=== PATIENT | male | born 1970 | race African-American/Black ===

== ENCOUNTER 2018-10-31 15:09 | Emergency (ER) | payer MEDICAID ==
[~2018-10-31] VITALS: Ht 177.8 cm; Wt 81.6 kg
--- NOTE | 2018-10-31 15:24 | NUR ---
ED Nurse Note: PT WALKED IN TO ER TODAY FROM HOME. AOX4. PT C/O REDNESS TO LEFT EYE X YESTERDAY BUT STATES REDNESS HAS BEEN INTERMITTENT X 1 MONTH. PT PRESENTS WITH REDNESS TO ENTIRE CONJUNCTIVA. PT DENIES PAIN, DRAINAGE, BLEEDING, CHANGES IN VISION, TRAUMA, OR INJURY.
--- NOTE | 2018-10-31 15:24 | NUR ---
Note kyle in EDM - 10/31/18 at 1528 by HOLDEN ED Nurse Note: PT WALKED IN TO ER TODAY FROM HOME. AOX4. PT C/O REDNESS TO LEFT EYE X YESTERDAY BUT STATES REDNESS HAS BEEN INTERMITTENT X 1 MONTH. PT PRESENTS WITH REDNESS TO ENTIRE CONJUNCTIVA. PT DENIES DRAINAGE, BLEEDING, CHANGES IN VISION, TRAUMA, OR INJURY.
[2018-10-31 15:26] VITALS: BP 124/76
--- NOTE | 2018-10-31 15:43 | Emergency Room Report ---
History of Present Illness General Chief Complaint: Eye Problems Source: Patient Present Illness HPI 48 YO Male presents to the ED c/o erythema of the left eye, acute onset upon awakening. Denies pain, trauma, changes in vision, recent coughing/sneezing or strenuous activities. Pt. reports similar symptoms 1 month ago as well. Denies taking blood thinning medications or hx of HTN. Denies CP, Palpitations, LOC, AMS, dizziness, Changes in Vision, Sensation, paresthesias, or a sudden severe headache. Pt. reports some itching of the upper left lid. denies scratching fb sensation. Denies eye discharge or increased lacrimation. Patient History Past Medical History: see triage record Past Surgical History: none Pertinent Family History: none Reviewed Nursing Documentation: PMH: Agreed; PSxH: Agreed Nursing Documentation-PMH Past Medical History: No History, Except For Hx Gastrointestinal Problems: Yes - IBS Review of Systems All Other Systems: negative except mentioned in HPI Physical Exam Vital Signs Date Time Temp Pulse Resp B/P (MAP) Pulse Ox O2 Delivery O2 Flow Rate FiO2 10/31/18 15:16 98.2 79 18 120/73 (89) 96 Room Air Sp02 EP Interpretation: reviewed, normal General Appearance: no apparent distress, alert, GCS 15, non-toxic Head: normocephalic, atraumatic Eyes: left eye other - subconjunctival hemorrhage. no photophobia, EOMI, no signs of trauma or infeciton. mild swelling noted of the upper lid of the left eye at the last line. ; bilateral eye normal inspection, bilateral eye PERRL, bilateral eye visual acuity ENT: hearing grossly normal, normal voice Neck: full range of motion, no meningismus Respiratory: lungs clear, normal breath sounds, speaking full sentences Cardiovascular #1: regular rate, rhythm Musculoskeletal: back normal, gait/station normal, normal range of motion, non- tender Neurologic: alert, oriented x3, responsive, motor strength/tone normal, sensory intact, normal gait, speech normal, grossly normal Psychiatric: judgement/insight normal Skin: no rash, other - no signs of trauma or bruises Medical Decision Making PA Attestation Dr. Abraham is my supervising Physician whom patient management has been discussed with. Diagnostic Impression: Primary Impression: Subconjunctival hemorrhage of left eye ER Course 48 YO Male presents to the ED c/o erythema of the left eye, acute onset upon awakening. Denies pain, trauma, changes in vision, recent coughing/sneezing or strenuous activities. Pt. reports similar symptoms 1 month ago as well. Denies taking blood thinning medications or hx of HTN. Denies CP, Palpitations, LOC, AMS, dizziness, Changes in Vision, Sensation, paresthesias, or a sudden severe headache. Pt. reports some itching of the upper left lid. denies scratching fb sensation. Denies eye discharge or increased lacrimation. - denies d/c, increased lacrimation, swelling or trauma of the eye. Ddx considered but are not limited to: conjunctivitis, subconjunctival hemorrhage, iritis, acute angle glaucoma. Vital signs: are WNL, pt. is afebrile H&PE are most consistent with: Subconjunctival hemorrhage ORDERS: none required at this time, the dx is clinical ED INTERVENTIONS: none at this time. -gave reassurance. DISCHARGE: At this time pt. is stable for d/c to home. Will provide printed patient care instructions, and any necessary prescriptions. Care plan and follow up instructions have been discussed with the patient prior to discharge. Last Vital Signs Date Time Temp Pulse Resp B/P (MAP) Pulse Ox O2 Delivery O2 Flow Rate FiO2 10/31/18 15:26 98.4 76 17 124/76 98 Room Air Disposition: HOME, SELF-CARE Condition: Stable Scripts Acetaminophen* (TYLENOL EXTRA STRENGTH*) 500 Mg Tablet 500 MG ORAL Q6H, #20 TAB 0 Refills Prov: Linda Aly 10/31/18 Olopatadine Hcl (PATADAY) 2.5 Ml Drops 1 DROP OP DAILY, #2.5 ML Prov: Linda Aly 10/31/18 Referrals: [facility], [facility] Patient Instructions: Subconjunctival Hemorrhage Additional Instructions: Take medications as directed. Follow up with a Primary Care Provider in 3-5 days, even if your symptoms have resolved. --Please review list of primary care clinics, if you do not already have a primary care provider Return sooner to ED if new symptoms occur, or current symptoms become worse. - Please note that this Emergency Department Report was dictated using [employer] fixer technology software, occasionally this can lead to erroneous entry secondary to interpretation by the dictation equipment. Linda Aly Oct 31, 2018 15:43
[2018-10-31] MEDS ORDERED: PATADAY2.5 ML OP (15:44)
[2018-10-31] MEDS ORDERED: TYLENOL EXTRA500 MG ORAL (15:44)
[2018-10-31 15:50] VITALS: BP 122/80
--- NOTE | 2018-10-31 15:50 | NUR ---
ED Nurse Note: PT SITTING PEACEFULLY IN BED IN NAD. AOX4. PRESCRIPTIONS AND DISCHARGE PAPERWORK EXPLAINED TO PT. PT VERBALIZES UNDERSTANDING AND ALL QUESTIONS ANSWERED. PRESCRIPTIONS AND DISCHARGE PAPERWORK GIVEN TO PT AND ID WRISTBAND REMOVED. PT WALKED OUT OF ER WITH STEADY GAIT AND ALL BELONGINGS.
== END 2018-10-31 15:51 | disposition home or self-care (01) ==
LOC: EMR 15:34
DX: H11.32 Conjunctival hemorrhage, left eye (principal); K58.9 Irritable bowel syndrome, unspecified
CPT/HCPCS: 99282

== ENCOUNTER → 2020-02-16 | Emergency (ER) | payer MEDICAID, OTHER ==
[~2020-02-16] VITALS: Ht 175.3 cm; Wt 96.2 kg
[~2020-02-16] MED LIST: ACETAMINOPHEN-1 EAC1 ORAL; Acetaminophen 500mg (ES) tab ORAL ONE; Ketorolac 60mg Inj IM ONE; NAPROXEN500 M2 ORAL; PATADAY2.5 ML OP; TYLENOL EXTRA500 MG ORAL
[2020-02-16 07:17] VITALS: BP 134/84
--- NOTE | 2020-02-16 07:17 | NUR ---
ED Nurse Note: Patient from home and walked in due to left foot swelling and pain since yesterday. Denies any recent trauma. vss, nad noted, a/ox4, ambulatory.
--- NOTE | 2020-02-16 07:31 | Emergency Room Report ---
History of Present Illness General Chief Complaint: Pain Source: Patient Present Illness HPI 49-year-old -Chinese male with past medical history of hypertension presents after dropping a metal wrench on his foot yesterday. Patient was ambulatory after the event, however has pain with weightbearing at this time. Denies numbness, paresthesia, recurrent trauma, fall, head trauma, loss of consciousness, vision changes, weakness, neck pain, back pain, chest pain or any other symptoms. The patient's symptoms were gradual onset, severity was moderate, duration since 1 day. Quality: Aching Patient has not tried any medication to alleviate his symptoms. Past medical history: Hypertension Past surgical history: Denies Smoking: Denies Alcohol use: Denies Drug use: Denies Review of systems: CONST: No fevers or chills, No night sweats PULMONARY: No productive cough, No shortness of breath CARDIAC: No chest pain, No palpitations GI: No vomiting, No diarrhea , No melena_or_BRBPR : No dysuria, No hematuria, No discharge NEURO: No new_focal_weakness_or_numbness, No confusion, No vision changes 14 point Review of Systems is otherwise negative except per HPI Physical Exam: GENERAL: Awake_alert_ nontoxic, no acute distress Spo2 98% on RA -normal EYES: Extraocular muscles are intact. Conjunctivae clear. Lids without swelling ENT: External nose and ear normal_in_appearance. Oropharynx clear. Head_atraumatic, Moist_oral_mucosa NECK: No JVD. No meningismus. No thyromegaly. Supple. Trachea midline RESP: Normal respiratory effort. Symmetric rise. No stridor. Clear_to_auscultation_No_rales_No_wheezes CARDIAC: Regular rate and regular rhytm. No_significant pedal edema. ABDOMEN: Soft. Nondistended. Nontender_No_rebound_or_guarding. MSK: Normal muscle tone, without rigidity. Extremities without asymmetric deformity or swelling. Left ankle / foot exam: Tenderness to palpation at the base of left toe #2 through 4. Trace swelling. Ecchymosis. No gross deformity Compartments are soft and compressible. Able to wiggle toes. No significant pain with passive range of motion Lateral malleolus: no tenderness / swelling / ecchymoses Medial malleolus: no tenderness / swelling / ecchymoses Dorsalis pedis pulse: 2+ Capillary refill: <3 seconds in all toes All toes: full range of motion without any tenderness / swelling / deformity / evidence of infection Base of the fifth metatarsal: no tenderness / swelling / ecchymoses Navicular: no tenderness / swelling / ecchymoses Calcaneus: no tenderness / swelling / ecchymoses Arch of the foot: no tenderness / swelling / ecchymoses Midfoot: no tenderness / swelling / ecchymoses Strength of dorsal / plantar flexion: normal 5/5, mild pain with range of motion SKIN: Warm and dry. No visible cyanosis or pallor NEUROLOGIC: Alert, oriented x3. Motor_and_sensation_grossly_intact. No truncal ataxia. Gait_normal Psych: Normal mood and affect, normal judgment and insight - COORDINATION OF CARE Case was discussed with: Patient Any imaging that were ordered were interpreted as part of the medical decision m aking: Medical Decision Making/Plan: Differential diagnosis includes musculoskeletal pain, fracture, dislocation, compartment syndrome, arterial occlusion, nerve damage, among others. Patient is afebrile, neurologically intact. He has tenderness to palpation at the dorsal aspect of toes #2 through 4. No gross deformity. No midfoot instability or TTP at tarsometatarsal joint. Distally the patient has capillary refill <2 seconds and strong pulses. There is no pallor or pain out of proportion to exam. There is no significant swelling, deformity, or report of significant dislocation that subsequently reduced. No evidence of arterial occlusion or injury. The associated joints have full range of motion without any significant pain or restriction in mobility. No evidence at this time of major ligamentous disruption. Xray of the left foot is WNL. Patient was placed in short leg splint. He was advised to follow-up with orthopedics in 7 days for repeat x-ray and continued management. Pertinent results reviewed with the patient. I educated the patient on the current treatment plan including the risks, benefits, and alternatives. I also discussed the extent and limitations of the current evaluation. The patient expressed understanding and agreement with plan. I recommended PMD follow-up within 3 days. Patient was informed that occult fractures or foreign bodies are not always apparent on their first visit and understand to follow up with their regular doctor for a reevaluation within the next 2-3 days, to ensure their symptoms completely resolve. 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 Reassessed following splint application. Neurovascular intact. Compartments remain soft and compressible. Pt tolerated well without complications. Splint care instructions were discussed. Crutches given. Pt to follow up with orthopedics within 1 week to prevent future arthritis and medical terminologist disability. Medical Decision Making Diagnostic Impression: Primary Impression: Foot pain, left Additional Impression: Toe pain, left Other X-Ray Diagnostic Results Other X-Ray Diagnostic Results : PA Scribe Text Left foot X-ray: Views: 2 view(s) No fracture. Normal alignment. Soft tissues normal. Joint spaces normal. Indication: Pain Impression: no acute disease The X-ray(s) were independently viewed and interpreted contemporaneously - Electronically signed by Afsaneh alas DO Reevaluation Time: 08:30 Last Vital Signs Date Time Temp Pulse Resp B/P (MAP) Pulse Ox O2 Delivery O2 Flow Rate FiO2 02/16/20 07:17 98.4 16 134/84 96 Room Air 02/16/20 07:11 85 Status: improved Disposition: HOME, SELF-CARE Admit Decision Time: 07:29 Condition: Stable Scripts Naproxen* (NAPROXEN*) 500 Mg Tablet 500 MG ORAL TWICE A DAY for 15 Days, #30 TAB Prov: Afsaneh Hughes.OCaro 02/16/20 Acetaminophen With Codeine (T#3) (TYLENOL #3 TAB*) Y Tab 1 TAB ORAL Q8H PRN for For Pain, #20 TAB Prov: Afsaneh Hughes.O. 02/16/20 Patient Instructions: Cast or Splint Care, [id number], Foot Contusion Additional Instructions: Instructions for patient/control system manager: Follow up with your physician in 1-2 days. Weight-bear as tolerated to the left foot. You need to follow-up with orthopedics within 5 days to prevent future arthritis or disability. You may need repeat x-rays if you are still having pain Since there is always the possibility of X-ray variance, you should get a copy of the final report of your imaging studies from medical records in 2-3 days in case of discrepancy, or you can have your regular doctor obtain these from the hospital. Hairline fractures or occult fractures can also be missed on the first visit so if you are having persistent pain and persistent decreased function after 1 week you should return for repeat evaluation and potentially repeat imaging. Follow-up with your doctor sooner if your condition requires a more timely clinical reevaluation. Return to the emergency department immediately if you feel that your condition is worsening or if you have any new or concerning symptoms. Review your discharge instructions and take any prescriptions given as instructed. [facility] PROVIDES FREE OR LOW-COST HEALTH SERVICES TO PEOPLE WHO CAN SHOW PROOF THAT THEY LIVE IN [facility]. TO FIND MORE CLINICS PARTNERED WITH [facility] TO PROVIDE SERVICE, PLEASE CALL . Afsaneh Hughes D.O. Feb 16, 2020 07:31
--- NOTE | 2020-02-16 08:00 | NUR ---
ED Nurse Note: xray at bedside.
[2020-02-16 08:26] VITALS: BP 134/84
--- NOTE | 2020-02-16 08:27 | NUR ---
ED Nurse Note: Patient cleared by health care Provider for discharge. DC instructions/prescription was given and explained to pt and verbalized understanding of teachings. All medical devices such as ID band removed. Pt is AAO x4, ambulatory and left with all personal belongings.
--- NOTE | 2020-02-16 12:17 | Diagnostic Imaging Report ---
Indication: Left foot pain Technique: 3 views left foot Comparison: none Findings: No acute fracture. No dislocation. Joint spaces are preserved. There are vascular calcifications. Impression: No acute process
== END | disposition home or self-care (01) ==
LOC: EMR 07:33
DX: M79.672 Pain in left foot (principal); M79.675 Pain in left toe(s); W22.8XXA Striking against or struck by other objects, initial encounter; Y93.9 Activity, unspecified; Y92.9 Unspecified place or not applicable
CPT/HCPCS: 29515; 73630; 96372; Z7502; 99283

== ENCOUNTER 2020-03-09 05:31 | Emergency (ER) | payer OTHER ==
[~2020-03-09] VITALS: Ht 175.3 cm; Wt 90.7 kg
[~2020-03-09 05:31] MED LIST changes: -Acetaminophen 500mg (ES) tab ORAL ONE; -Ketorolac 60mg Inj IM ONE
--- NOTE | 2020-03-09 05:45 | Emergency Room Report ---
History of Present Illness General Chief Complaint: Pain Source: Patient Present Illness HPI This is a 49-year-old male with no past medical history. He presents with chief complaint of toe pain. He dropped a heavy object on his toe around [place]. Since then is been hurting. It was very swollen but better now. Worse when he walk on it. Better with rest. No drainage. No fever chills but no redness. Pain is 8 out of 10. 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 COVID-19 Screening: Negative COVID-19 COVID-19 Testing Source: [facility] Patient History Past Medical History: see triage record, old chart reviewed Past Surgical History: none Pertinent Family History: none Social History: Denies: smoking Immunizations: other Reviewed Nursing Documentation: PMH: Agreed; PSxH: Agreed Nursing Documentation-PMH Past Medical History: No Stated History Hx Gastrointestinal Problems: Yes Review of Systems Eye: Denies: eye pain, blurred vision ENT: Denies: ear pain, nose congestion, throat swelling Respiratory: Denies: cough, shortness of breath Cardiovascular: Denies: chest pain, palpitations Gastrointestinal: Denies: abdominal pain, diarrhea, nausea, vomiting Musculoskeletal: Reports: joint pain; Denies: back pain Skin: Denies: rash Neurological: Denies: headache, numbness Endocrine: Denies: increased thirst, increased urine Hematologic/Lymphatic: Denies: easy bruising All Other Systems: negative except mentioned in HPI Physical Exam Vital Signs Date Time Temp Pulse Resp B/P (MAP) Pulse Ox O2 Delivery O2 Flow Rate FiO2 03/09/20 05:35 98.1 87 18 123/73 (90) 97 Room Air Vitals normal Sp02 EP Interpretation: reviewed, normal General Appearance: well appearing, no apparent distress, alert Head: normocephalic, atraumatic Eyes: bilateral eye PERRL, bilateral eye EOMI ENT: hearing grossly normal, normal pharynx Neck: full range of motion, supple, no meningismus Respiratory: chest non-tender, lungs clear, normal breath sounds Cardiovascular #1: regular rate, rhythm, no murmur Gastrointestinal: normal bowel sounds, non tender, no mass, no organomegaly, no bruit, non-distended Musculoskeletal: back normal, normal range of motion, gait/station normal, other - Left fourth toe: There is tenderness at the base of the phalanx and proximal metatarsal bone. There is generalized edema. No redness. No ecchymosis. Psychiatric: mood/affect normal Medical Decision Making Diagnostic Impression: Primary Impression: Toe fracture, left Qualified Codes: S92.912A - Unspecified fracture of left toe(s), initial encounter for closed fracture ER Course Patient presents with a toe fracture. Will discharge home with orthopedic shoes. Other X-Ray Diagnostic Results Other X-Ray Diagnostic Results : X-Ray ordered: Left foot x-rays # of Views/Limited Vs Complete: 3 View Indication: Pain EP Interpretation: Yes Interpretation: no dislocation, no soft tissue swelling, other - Fracture of left fourth proximal phalanx Impression: Other - left 4th prox phalanx Electronically Signed by: Omar Henriquez MD Last Vital Signs Date Time Temp Pulse Resp B/P (MAP) Pulse Ox O2 Delivery O2 Flow Rate FiO2 03/09/20 05:35 98.1 87 18 123/73 (90) 97 Room Air Status: unchanged Disposition: HOME, SELF-CARE Condition: Stable Scripts Ibuprofen* (MOTRIN*) 600 Mg Tablet 600 MG ORAL Q6H PRN for For Pain, #30 TAB 0 Refills Prov: Omar Henriquez MD 03/09/20 Additional Instructions: Follow-up with your doctor in 7 days. Return if symptoms worsen. Omar Henriquez MD Mar 09, 2020 05:45
--- NOTE | 2020-03-09 05:45 | NUR ---
ED Nurse Note: Patient walked into ED c/o pain located on his left foot on his ring toe finger. Pt reported an object falling down on it around 02/15/20. Skin is intact, no bleeding noted, minimal redness seen at the area. Pt denies fever/chills, N/V/D. Pt is AAOx4 and ambulatory.
--- NOTE | 2020-03-09 05:46 | NUR ---
ED Nurse Note: ERMD at bedside
--- NOTE | 2020-03-09 05:48 | NUR ---
ED Nurse Note: Xray done at bedside
[2020-03-09 05:49] VITALS: BP 123/73
[2020-03-09] MEDS ORDERED: IBUPROFEN600 M1 ORAL (05:57)
[2020-03-09 06:05] VITALS: BP 123/73
--- NOTE | 2020-03-09 06:05 | NUR ---
ER DISCHARGE NOTE: Patient is cleared to be discharged per ERMD, pt is aox4, on room air, with stable vital signs. pt was given dc and prescription instructions, pt was able to verbalize understanding, pt id band removed. pt is able to ambulate with steady gait. pt took all belongings.
--- NOTE | 2020-03-09 14:16 | Diagnostic Imaging Report ---
Indication: Pain, trauma, object fell on foot Technique: 3 views left foot Comparison: 02/16/2020 Findings: There is an oblique fracture of the distal aspect of the fourth proximal phalanx. This is a new finding. No other acute fracture. No dislocations. The joint spaces are preserved Impression: Positive for fourth proximal phalangeal fracture. This agrees with the preliminary interpretation reported by the emergency room physician in the electronic medical record
== END 2020-03-09 06:06 | disposition home or self-care (01) ==
LOC: EMR 05:48
DX: S92.512A Displaced fracture of proximal phalanx of left lesser toe(s), initial encounter for closed fracture (principal); W22.8XXA Striking against or struck by other objects, initial encounter; Y93.9 Activity, unspecified; Y92.9 Unspecified place or not applicable
CPT/HCPCS: 73630; Z7502; 99283

== ENCOUNTER 2020-04-10 07:36 | Emergency (ER) | payer OTHER ==
[~2020-04-10] VITALS: Ht 175.3 cm; Wt 95.3 kg
[~2020-04-10 07:36] MED LIST changes: +IBUPROFEN600 M1 ORAL
[2020-04-10 07:57] VITALS: BP 153/92
[2020-04-10] MEDS ORDERED: IBUPROFEN600 M1 ORAL (08:06)
--- NOTE | 2020-04-10 08:30 | NUR ---
ER DISCHARGE NOTE: Patient is cleared to be discharged per ERMD, pt is aox4, on room air, with stable vital signs. pt was given dc and prescription instructions, pt was able to verbalize understanding. pt is able to ambulate with steady gait. pt took all belongings.
--- NOTE | 2020-04-10 08:37 | Emergency Room Report ---
History of Present Illness General Chief Complaint: General Complaint Source: Patient Present Illness HPI Disclaimer: Please note that this report is being documented using [employer] technology. This can lead to erroneous entry secondary to incorrect interpretation by the dictating instrument. HPI: 49-year-old male presents for evaluation of right knee pain. No trauma reported. Symptoms ongoing for several weeks. 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 States sometimes he feels tightness in his quadricep. Denies direct trauma, twisting injury. Able to bear weight without difficulty. Ambulating with steady gait. Denies numbness or tingling. No prior history of trauma or surgery. Has just been trying to rest it. Is not taking any medications. Denies history of gout. Denies redness, heat, skin breakdown or purulent drainage. Does not inject IV drugs. Denies other rash or skin breakdown elsewhere on his body. 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 EOMI. Resp: Normal work of breathing Skin: Intact. No abrasions, laceration or rash over the exposed skin MSK: Normal tone and bulk. Moving all extremities. No obvious deformity. Patella in anatomic position. No effusion or edema noted. No overlying skin breakdown. Full range of motion in the right knee, hip. No laxity on varus or valgus testing. No laxity on anterior posterior drawer testing. Neuro: Awake and alert. Mentating appropriately Medical Decision Making Diagnostic Impression: Primary Impression: Knee pain ER Course Is a 49-year-old male presenting for knee pain of the past few weeks. No effusion or sign of bony injury identified. Physical exam is unremarkable. Likely overuse injury such as a tendinitis. Will start on NSAIDs and discussed wearing a knee brace. Discussed elevating his knee and discussing with his doctor physical rehabilitation programs. Do not believe he requires emergent labs or imaging at this time. No sign of infection. Otherwise well-appearing stable for outpatient follow-up. Instructed to return new or worsening symptoms. Last Vital Signs Date Time Temp Pulse Resp B/P (MAP) Pulse Ox O2 Delivery O2 Flow Rate FiO2 04/10/20 08:05 86 18 Room Air 04/10/20 07:57 98.3 153/92 98 Disposition: HOME, SELF-CARE Condition: Stable Scripts Ibuprofen* (MOTRIN*) 600 Mg Tablet 600 MG ORAL Q6H PRN for For Pain, #30 TAB 0 Refills Prov: Kali Abraham MD 04/10/20 Referrals: [facility],REFERRING (PCP) [facility] Aubree Chung Comp. [facility] Walk-In [facility] Open 24 hour /7 days a week by Appointment Only [address] [facility] [address] [facility] Departure Forms: Return to Work Return to Work Date: Apr 11, 2020 Patient Instructions: Quadriceps Strain With [facility] Additional Instructions: Please follow-up with your primary care doctor in the next 1 to 3 days to discuss this emergency department visit and for reevaluation. If you have any new or worsening symptoms please return to the emergency department for reevaluation. Please note that this report is being documented using [employer] technology. This can lead to erroneous entry secondary to incorrect interpretation by the dictating instrument. Kali Abraham MD Apr 10, 2020 08:37
== END 2020-04-10 08:15 | disposition home or self-care (01) ==
LOC: EMR 08:05
DX: M25.561 Pain in right knee (principal)
CPT/HCPCS: 99282